=== PATIENT | male | born 1930 | race Caucasian/White ===

== ENCOUNTER → 2017-12-30 | Outpatient (CLI) | payer OTHER ==
[~2017-12-30] MED LIST: GLYB2.5T3 PO; LEVA250T PO; LINE1TAB22 PO; MEDR4PAK3 PO; MEGE40TA PO; METO25 PO; NEPHTAB3 PO; SEVEL800 PO; Z.0.OXYGENDME NC; ZOCO40TA PO
--- NOTE | 2018-01-01 07:30 | RSPPFT ---
DATE OF PROCEDURE: 12/30/17 COMMENTS: Spirometry shows FVC of 1.4 at 57% of predicted, FEV1 of 1.2 at 63%, FEV1/FVC ratio is normal. Flow is normal at FEF 50, FEF 75, and FEF 25-75. IMPRESSION: 1. Study is suggestive of mild restrictive lung disease. 2. Post-bronchodilator study was not done.
== END ==
LOC: PHRSP 10:09
PROVIDERS: ATTEND Specialist
DX: J84.10 Pulmonary fibrosis, unspecified (principal)
CPT/HCPCS: 36600; 82805; 94010